=== PATIENT | female | born 2000 | race Two or more races ===

== ENCOUNTER → 2022-10-13 | Outpatient (REF) | payer OTHER | LOC: M PLALAB 10:04 | PROVIDERS: ATTEND Advanced Practice Midwife | DX: Z53.9 Procedure and treatment not carried out, unspecified reason (principal) ==

== ENCOUNTER → 2022-11-19 | Outpatient (CLI) | payer OTHER ==
[2022-11-19 13:22] LABS: HEMATOCRIT 39.2 % (36.0-47.0); HEMOGLOBIN 11.6 g/dl (12.0-15.5); MEAN CORPUSCULAR HEMOGLOBIN 22.5 pg (27.0-33.0); MEAN CORPUSCULAR HGB CONC 29.6 g/dl (32.0-36.5); PLATELET COUNT, AUTOMATED 441 10^3/uL (150-450); RED BLOOD COUNT 5.16 10^6/uL (4.00-5.40); WHITE BLOOD COUNT 14.4 10^3/uL (4.0-10.0)
[2022-11-19 14:22] LABS: HIV 1&2 SCREEN ATELLICA NEGATIVE (NEGATIVE)
[2022-11-19 14:30] LABS: HEPATITIS C VIRUS ABY INDEX 0.1 INDEX (<0.8)
[2022-11-19 15:19] LABS: GC DNA AMPLIFICATION NEGATIVE (NEGATIVE)
== END ==
LOC: M PLALAB 10:22
PROVIDERS: ATTEND Advanced Practice Midwife
DX: Z34.01 Encounter for supervision of normal first pregnancy, first trimester (principal)
CPT/HCPCS: 36415; 85027; 86762; 86780; 86803; 86850; 86900; 86901; 87086; 87340; 87389; 87810; 87850; G0463

== ENCOUNTER → 2022-12-21 | Outpatient (CLI) | payer OTHER | LOC: M WHC 13:08 | PROVIDERS: ATTEND Obstetrics & Gynecology | DX: Z34.92 Encounter for supervision of normal pregnancy, unspecified, second trimester (principal); Z3A.21 21 weeks gestation of pregnancy | CPT/HCPCS: 36415; 76811; G0463 ==

== ENCOUNTER → 2023-02-03 | Outpatient (CLI) | payer OTHER ==
[2023-02-03 17:31] LABS: HEMATOCRIT 35.1 % (36.0-47.0); HEMOGLOBIN 10.2 g/dl (12.0-15.5); MEAN CORPUSCULAR HEMOGLOBIN 21.7 pg (27.0-33.0); MEAN CORPUSCULAR HGB CONC 29.1 g/dl (32.0-36.5); MEAN CORPUSCULAR VOLUME 74.8 fl (80.0-96.0); PLATELET COUNT, AUTOMATED 443 10^3/uL (150-450); RED BLOOD COUNT 4.69 10^6/uL (4.00-5.40); WHITE BLOOD COUNT 16.9 10^3/uL (4.0-10.0)
== END ==
LOC: M PLALAB 14:01
PROVIDERS: ATTEND Advanced Practice Midwife
DX: Z34.02 Encounter for supervision of normal first pregnancy, second trimester (principal)

== ENCOUNTER → 2023-03-05 | Outpatient (CLI) | payer OTHER | LOC: M WHC 13:13 | PROVIDERS: ATTEND Advanced Practice Midwife | DX: Z34.02 Encounter for supervision of normal first pregnancy, second trimester (principal); Z3A.33 33 weeks gestation of pregnancy ==

== ENCOUNTER → 2023-04-02 | Outpatient (REF) | payer OTHER | LOC: M PLALAB 14:07 | PROVIDERS: ATTEND Obstetrics & Gynecology | DX: Z34.90 Encounter for supervision of normal pregnancy, unspecified, unspecified trimester (principal) ==

== ENCOUNTER → 2023-04-02 | Outpatient (CLI) | payer OTHER ==
[2023-04-02 17:36] LABS: HEMATOCRIT 34.7 % (36.0-47.0); HEMOGLOBIN 9.9 g/dl (12.0-15.5); MEAN CORPUSCULAR HEMOGLOBIN 19.8 pg (27.0-33.0); MEAN CORPUSCULAR HGB CONC 28.5 g/dl (32.0-36.5); MEAN CORPUSCULAR VOLUME 69.4 fl (80.0-96.0); PLATELET COUNT, AUTOMATED 410 10^3/uL (150-450); WHITE BLOOD COUNT 16.2 10^3/uL (4.0-10.0)
[2023-04-02 17:54] LABS: TOTAL PROTEIN,RANDOM URINE 39.7 MG/DL (0.0-14.0)
[2023-04-02 17:58] LABS: CREATININE,RANDOM URINE 184.2 MG/DL; LDH LACTATE DEHYDROGENASE 194 U/L (120-246)
[2023-04-02 17:59] LABS: ALT/SGPT < 9 U/L (7.0-40); AST/SGOT 11 U/L (<34); BILIRUBIN,TOTAL 0.5 MG/DL (0.3-1.2); GLOMERULAR FILTRATION RATE > 60.0 (>60)
[2023-04-02 19:19] LABS: URIC ACID 4.2 MG/DL (3.1-7.8)
== END ==
LOC: M PLALAB 15:09
PROVIDERS: ATTEND Obstetrics & Gynecology
DX: O16.9 Unspecified maternal hypertension, unspecified trimester (principal); Z3A.36 36 weeks gestation of pregnancy

== ENCOUNTER → 2023-04-22 | Outpatient (CLI) | payer OTHER | LOC: M WHC 11:28 | PROVIDERS: ATTEND Advanced Practice Midwife | DX: O26.849 Uterine size-date discrepancy, unspecified trimester (principal) ==

== ENCOUNTER → 2023-11-24 | Outpatient (REF) | payer OTHER ==
[~2023-11-24] MED LIST: ACET-683 PO; FERR324T21 PO; IBUP-1022 PO; NIFE1TAB52 PO; PRENTAB9 PO
== END ==
LOC: M PLALAB 16:09
PROVIDERS: ATTEND Obstetrics & Gynecology
DX: Z01.419 Encounter for gynecological examination (general) (routine) without abnormal findings (principal)

== ENCOUNTER → 2023-11-29 | Outpatient (CLI) | payer OTHER ==
[2023-11-29 15:41] LABS: ALBUMIN 4.2 G/DL (3.2-5.2); ALKALINE PHOSPHATASE 65 U/L (46-116); ALT/SGPT 25 U/L (7.0-40); AST/SGOT 14 U/L (<34); BILIRUBIN,TOTAL 0.5 MG/DL (0.3-1.2); BLOOD UREA NITROGEN 12 MG/DL (9-23); CALCIUM LEVEL 9.8 MG/DL (8.5-10.1); CARBON DIOXIDE LEVEL 27 MMOL/L (20-31); CHLORIDE LEVEL 108 MMOL/L (98-107); CHOLESTEROL LEVEL 193 MG/DL (<200); CHOLESTEROL RISK RATIO 5.43 (<5); CREATININE FOR GFR 0.84 MG/DL (0.55-1.30); FREE T4 1.17 NG/DL (0.89-1.76); GLOMERULAR FILTRATION RATE > 60.0 (>60); GLUCOSE, FASTING 86 MG/DL (60-100); HDL CHOLESTEROL 35.5 MG/DL (>40); LDL CHOLESTEROL 133.1 MG/DL (<100); NON-HDL-C 157.5 MG/DL; POTASSIUM SERUM 4.1 MMOL/L (3.5-5.1); SODIUM LEVEL 140 MMOL/L (136-145); TOTAL PROTEIN 7.1 G/DL (5.7-8.2); TRIGLYCERIDES LEVEL 122 MG/DL (<150)
[2023-11-29 16:29] LABS: HEMOGLOBIN A1c 5.3 % (4.0-6.0)
== END ==
LOC: M PLALAB 12:24
PROVIDERS: ATTEND Obstetrics & Gynecology
DX: E28.2 Polycystic ovarian syndrome (principal)

== ENCOUNTER → 2024-03-27 | Outpatient (REF) | payer OTHER | LOC: M PLALAB 09:58 | PROVIDERS: ATTEND Advanced Practice Midwife | DX: Z34.81 Encounter for supervision of other normal pregnancy, first trimester (principal) ==

== ENCOUNTER → 2024-04-05 | Outpatient (CLI) | payer OTHER ==
[2024-04-05 14:25] LABS: HEMATOCRIT 43.4 % (36.0-47.0); HEMOGLOBIN 13.6 g/dl (12.0-15.5); MEAN CORPUSCULAR HEMOGLOBIN 25.3 pg (27.0-33.0); MEAN CORPUSCULAR HGB CONC 31.3 g/dl (32.0-36.5); MEAN CORPUSCULAR VOLUME 80.7 fl (80.0-96.0); PLATELET COUNT, AUTOMATED 405 10^3/uL (150-450); RED BLOOD COUNT 5.38 10^6/uL (4.00-5.40); WHITE BLOOD COUNT 11.2 10^3/uL (4.0-10.0)
[2024-04-05 14:39] LABS: TOTAL PROTEIN,RANDOM URINE 34.7 MG/DL (0.0-14.0)
[2024-04-05 14:42] LABS: CREATININE,RANDOM URINE 91.4 MG/DL; URIC ACID 3.5 MG/DL (3.1-7.8)
[2024-04-05 14:44] LABS: LDH LACTATE DEHYDROGENASE 150 U/L (120-246)
[2024-04-05 14:45] LABS: ALT/SGPT 10 U/L (7.0-40); AST/SGOT < 8 U/L (<34); BILIRUBIN,TOTAL < 0.2 MG/DL (0.3-1.2); CREATININE FOR GFR 0.54 MG/DL (0.55-1.30); GLOMERULAR FILTRATION RATE > 60.0 (>60)
[2024-04-05 15:09] LABS: HIV 1&2 SCREEN NEGATIVE (NEGATIVE)
[2024-04-05 16:10] LABS: GC DNA AMPLIFICATION NEGATIVE (NEGATIVE)
== END ==
LOC: M PLALAB 11:44
PROVIDERS: ATTEND Advanced Practice Midwife
DX: Z34.81 Encounter for supervision of other normal pregnancy, first trimester (principal)

== ENCOUNTER 2024-05-27 20:13 | Emergency (ER) | payer OTHER ==
[~2024-05-27] VITALS: Ht 165.1 cm; Wt 113.6 kg
[2024-05-27 20:18] VITALS: BP 188/90; TEMP 98.1; O2SAT 98
[2024-05-27] MEDS ORDERED: LABE20TAB (20:26)
== END 2024-05-27 20:30 | disposition left against medical advice (07) ==
LOC: M ED 20:13
DX: Z53.21 Procedure and treatment not carried out due to patient leaving prior to being seen by health care provider (principal)

== ENCOUNTER 2024-05-27 20:35 | Outpatient (CLI) | payer OTHER ==
[~2024-05-27] VITALS: Ht 165.1 cm; Wt 113.8 kg
[~2024-05-27 20:35] MED LIST changes: +LABE20TAB
[2024-05-27] MEDS ORDERED: HOME MED LIST COMPLETE! XX SCH (20:50)
[2024-05-27 20:58] VITALS: BP 140/76
[2024-05-27 21:17] VITALS: BP 123/69
[2024-05-27 21:31] VITALS: BP 122/65
[2024-05-27 21:50] LABS: TOTAL PROTEIN,RANDOM URINE 33.4 MG/DL (0.0-14.0)
[2024-05-27 21:55] LABS: CREATININE,RANDOM URINE 231.3 MG/DL
[2024-05-27 22:05] LABS: HEMATOCRIT 37.6 % (36.0-47.0); HEMOGLOBIN 11.9 g/dl (12.0-15.5); MEAN CORPUSCULAR HEMOGLOBIN 25.1 pg (27.0-33.0); MEAN CORPUSCULAR HGB CONC 31.6 g/dl (32.0-36.5); MEAN CORPUSCULAR VOLUME 79.3 fl (80.0-96.0); PLATELET COUNT, AUTOMATED 383 10^3/uL (150-450); RED BLOOD COUNT 4.74 10^6/uL (4.00-5.40)
[2024-05-27 22:32] LABS: URIC ACID 4.2 MG/DL (3.1-7.8)
[2024-05-27 22:35] LABS: LDH LACTATE DEHYDROGENASE 152 U/L (120-246)
[2024-05-27 22:36] LABS: ALBUMIN 2.9 G/DL (3.2-5.2); ALKALINE PHOSPHATASE 70 U/L (46-116); ALT/SGPT 9 U/L (7.0-40); AST/SGOT < 8 U/L (<34); BILIRUBIN,TOTAL 0.3 MG/DL (0.3-1.2); BLOOD UREA NITROGEN 8 MG/DL (9-23); CALCIUM LEVEL 9.7 MG/DL (8.5-10.1); CARBON DIOXIDE LEVEL 25 MMOL/L (20-31); CHLORIDE LEVEL 108 MMOL/L (98-107); CREATININE FOR GFR 0.57 MG/DL (0.55-1.30); GLOMERULAR FILTRATION RATE > 60.0 (>60); GLUCOSE, FASTING 87 MG/DL (60-100); POTASSIUM SERUM 3.7 MMOL/L (3.5-5.1); SODIUM LEVEL 140 MMOL/L (136-145); TOTAL PROTEIN 6.5 G/DL (5.7-8.2)
== END 2024-05-27 23:37 | disposition home or self-care (01) ==
LOC: M LDO 20:35
PROVIDERS: ATTEND Obstetrics & Gynecology
DX: O10.012 Pre-existing essential hypertension complicating pregnancy, second trimester (principal); O26.892 Other specified pregnancy related conditions, second trimester; Z91.09 Other allergy status, other than to drugs and biological substances; M35.9 Systemic involvement of connective tissue, unspecified; Z3A.19 19 weeks gestation of pregnancy
CPT/HCPCS: 36415; 59025; 80053; 82570; 83615; 84156; 84550; 85027; G0463

== ENCOUNTER → 2024-06-02 | Outpatient (CLI) | payer OTHER | LOC: M PLALAB 13:53 | PROVIDERS: ATTEND Nurse Practitioner Women's Health | DX: Z34.80 Encounter for supervision of other normal pregnancy, unspecified trimester (principal) ==

== ENCOUNTER → 2024-06-02 | Outpatient (CLI) | payer OTHER | LOC: M WHC 12:46 | PROVIDERS: ATTEND Obstetrics & Gynecology | DX: Z36.89 Encounter for other specified antenatal screening (principal); Z3A.19 19 weeks gestation of pregnancy ==

== ENCOUNTER → 2024-07-14 | Outpatient (CLI) | payer OTHER ==
[2024-07-13 20:31] LABS: GC DNA AMPLIFICATION NEGATIVE (NEGATIVE)
[2024-07-14 13:52] LABS: HEMATOCRIT 37.8 % (36.0-47.0); HEMOGLOBIN 11.2 g/dl (12.0-15.5); MEAN CORPUSCULAR HEMOGLOBIN 23.4 pg (27.0-33.0); MEAN CORPUSCULAR HGB CONC 29.6 g/dl (32.0-36.5); MEAN CORPUSCULAR VOLUME 79.1 fl (80.0-96.0); PLATELET COUNT, AUTOMATED 377 10^3/uL (150-450); RED BLOOD COUNT 4.78 10^6/uL (4.00-5.40); WHITE BLOOD COUNT 13.2 10^3/uL (4.0-10.0)
[2024-07-14 13:54] LABS: GLUCOSE CHALLENGE TEST 1 HOUR 119 MG/DL (LESS THAN 140)
[2024-07-14 14:29] LABS: HIV 1&2 SCREEN NEGATIVE (NEGATIVE)
[2024-07-14 14:36] LABS: HEPATITIS C VIRUS ABY INDEX 0.15 INDEX (<0.8)
[2024-07-14 15:20] LABS: GC DNA AMPLIFICATION NEGATIVE (NEGATIVE)
== END ==
LOC: M PLALAB 07-13 14:19
PROVIDERS: ATTEND Obstetrics & Gynecology
DX: O11.2 Pre-existing hypertension with pre-eclampsia, second trimester (principal)

== ENCOUNTER 2024-08-28 16:04 | Outpatient (CLI) | payer OTHER ==
[~2024-08-28] VITALS: Ht 165.1 cm; Wt 118.3 kg
[2024-08-28 16:21] VITALS: BP 133/71; O2SAT 97
[2024-08-28] MEDS ORDERED: LABE300T3 PO (16:22)
[2024-08-28 16:38] VITALS: BP 122/76
[2024-08-28 17:22] VITALS: BP 132/68
[2024-08-28 17:37] VITALS: BP 135/66
== END 2024-08-28 18:00 | disposition home or self-care (01) ==
LOC: M LDO 16:04
PROVIDERS: ATTEND Advanced Practice Midwife
DX: O10.013 Pre-existing essential hypertension complicating pregnancy, third trimester (principal); O26.893 Other specified pregnancy related conditions, third trimester; R42 Dizziness and giddiness; Z3A.32 32 weeks gestation of pregnancy
CPT/HCPCS: 59025; 76816; 76820; G0463

== ENCOUNTER 2024-09-04 13:35 | Outpatient (CLI) | payer OTHER ==
[~2024-09-04] VITALS: Ht 165.1 cm; Wt 118.7 kg
[~2024-09-04 13:35] MED LIST changes: +LABE300T3 PO
[2024-09-04] MEDS: BETAMETHASONE SOLUSPAN 6MG/ML 5ML VIAL IM SCH (14:03)
== END 2024-09-04 14:00 | disposition home or self-care (01) ==
LOC: M LDO 13:35
PROVIDERS: ATTEND Advanced Practice Midwife
DX: O10.013 Pre-existing essential hypertension complicating pregnancy, third trimester (principal); Z3A.33 33 weeks gestation of pregnancy
CPT/HCPCS: 96372; G0463; J0702

== ENCOUNTER 2024-09-05 13:50 | Outpatient (CLI) | payer OTHER ==
[~2024-09-05] VITALS: Ht 165.1 cm; Wt 119.7 kg
[2024-09-05 14:10] VITALS: BP 136/75
[2024-09-05] MEDS: BETAMETHASONE SOLUSPAN 6MG/ML 5ML VIAL IM ONE (14:51)
== END 2024-09-05 15:00 | disposition home or self-care (01) ==
LOC: M LDO 13:50
PROVIDERS: ATTEND Obstetrics & Gynecology
DX: O10.013 Pre-existing essential hypertension complicating pregnancy, third trimester (principal); Z3A.34 34 weeks gestation of pregnancy
CPT/HCPCS: 59025; 96372; G0463; J0702

== ENCOUNTER → 2024-09-18 | Outpatient (REF) | payer OTHER | LOC: M PLALAB 10:45 | PROVIDERS: ATTEND Obstetrics & Gynecology | DX: O10.013 Pre-existing essential hypertension complicating pregnancy, third trimester (principal); Z3A.36 36 weeks gestation of pregnancy; Z91.02 Food additives allergy status ==

== ENCOUNTER 2024-09-26 08:00 | Inpatient (IN) | payer OTHER ==
[~2024-09-26] VITALS: Ht 165.1 cm; Wt 121.4 kg
[2024-09-26] VITALS (23 sets, daily range): BP systolic 116–154; BP diastolic 61–97
[2024-09-26] MEDS ORDERED: OXYTOCIN INJ 10UNITS/ML 1ML VIAL IM PRN (08:50)
[2024-09-26] MEDS ORDERED: LIDOCAINE 1% MDV 20ML VIAL INFIL PRN (08:50)
[2024-09-26] MEDS ORDERED: OXYTOCIN DRIP 30 UNITS in IV 1 EA IV PRN (08:50)
[2024-09-26] MEDS ORDERED: CARBOPROST TROMETHAMINE 250 MCG/ML AMP IM PRN (08:50)
[2024-09-26] MEDS ORDERED: HOME MED LIST COMPLETE! XX SCH (08:55)
[2024-09-26] MEDS: miSOPROStol 50MCG 1/2 TABLET PO SCH (09:13)
[2024-09-26 10:02] LABS: HEMATOCRIT 36.5 % (36.0-47.0); HEMOGLOBIN 10.9 g/dl (12.0-15.5); MEAN CORPUSCULAR HEMOGLOBIN 22.3 pg (27.0-33.0); MEAN CORPUSCULAR HGB CONC 29.9 g/dl (32.0-36.5); MEAN CORPUSCULAR VOLUME 74.6 fl (80.0-96.0); PLATELET COUNT, AUTOMATED 373 10^3/uL (150-450); RED BLOOD COUNT 4.89 10^6/uL (4.00-5.40); WHITE BLOOD COUNT 11.6 10^3/uL (4.0-10.0)
[2024-09-26 10:28] LABS: URIC ACID 4.2 MG/DL (3.1-7.8)
[2024-09-26 10:30] LABS: LDH LACTATE DEHYDROGENASE 127 U/L (120-246)
[2024-09-26 10:31] LABS: ALT/SGPT 10 U/L (7.0-40); AST/SGOT < 8 U/L (<34); BILIRUBIN,TOTAL 0.4 MG/DL (0.3-1.2); CREATININE FOR GFR 0.56 MG/DL (0.55-1.30); GLOMERULAR FILTRATION RATE > 60.0 (>60)
[2024-09-26 10:58] LABS: HIV 1&2 SCREEN NEGATIVE (NEGATIVE)
[2024-09-26 11:06] LABS: HEPATITIS C VIRUS ABY INDEX 0.06 INDEX (<0.8)
[2024-09-26 12:26] LABS: CREATININE,RANDOM URINE 236.1 MG/DL
[2024-09-26 12:59] LABS: TOTAL PROTEIN,RANDOM URINE 31.2 MG/DL (0.0-14.0)
[2024-09-26] MEDS: LABETALOL 200 MG TAB PO SCH (13:39)
[2024-09-26] MEDS: LR 1,000 ML IV SCH (16:18)
[2024-09-26] MEDS: OXYTOCIN DRIP 30 UNITS in IV 1 EA IV SCH (16:19)
[2024-09-26] MEDS ORDERED: diphenhydrAMINE 50MG/ML VIAL IV PRN (19:50)
[2024-09-26] MEDS ORDERED: NALOXONE INJ 0.4MG/1ML VIAL IV PRN (19:50)
[2024-09-26] MEDS ORDERED: LR 500 ML IV PRN (19:50)
[2024-09-26] MEDS ORDERED: ePHEDrine SULFATE 25 MG/5 ML(5MG/ML) SYRINGE IVP PRN (19:50)
[2024-09-26] MEDS ORDERED: ONDANSETRON 4MG 2ML VIAL IV PRN (19:50)
[2024-09-26] MEDS ORDERED: EPIDURAL/PCA KEYS XX PRN (19:50)
[2024-09-26] MEDS: FENTANYL/ROPIVACAINE/NACL BAG 100 ML EPIDURAL SCH (20:30)
[2024-09-26] MEDS: TRANEXAMIC ACID INJection 1,000 MG in NS 100 ML IV PRN (22:23)
[2024-09-26] MEDS ORDERED: IBUPROFEN 600MG TAB PO PRN (22:30)
[2024-09-26] MEDS ORDERED: ACETAMINOPHEN 325 MG TAB PO PRN (22:30)
[2024-09-26] MEDS ORDERED: DIBUCAINE 1% OINTMENT 30GM TOP PRN (22:30)
[2024-09-26] MEDS ORDERED: RHOGAM 300MCG (1500IU) INJ IM SCH (22:30)
[2024-09-27 01:00] VITALS: BP 126/62; O2SAT 97
[2024-09-27 06:08] VITALS: BP 123/58; O2SAT 96
[2024-09-27] MEDS: PRENATAL VITAMINS CHEWABLE TABLET PO SCH (08:08)
[2024-09-27] MEDS: DOCUSATE SODIUM 100MG CAPSULE PO PRN (08:08)
[2024-09-27] MEDS: ACETAMINOPHEN 500 MG TAB PO PRN (08:09)
[2024-09-27] MEDS: LABETALOL 100MG TAB PO SCH (08:09)
[2024-09-27 10:00] VITALS: BP 133/60; O2SAT 96
[2024-09-27 14:00] VITALS: BP 127/70; O2SAT 96
[2024-09-27] MEDS: IBUPROFEN 800 MG TAB PO PRN (15:44)
[2024-09-27 18:00] VITALS: BP 132/61; O2SAT 97
[2024-09-27 22:00] VITALS: BP 135/78; O2SAT 98
[2024-09-28 02:00] VITALS: BP 136/61; O2SAT 96
[2024-09-28 06:18] VITALS: BP 140/65; O2SAT 95
[2024-09-28 08:48] VITALS: BP 129/67
[2024-09-28] MEDS ORDERED: MEASLES,MUMPS,RUBELLA VACCINE INJ (MMR-II) SC.IMMUN ONE (09:00)
[2024-09-28] MEDS: BOOSTRIX VACCINE (TETANUS/DIPHTH/ACEL. PERTUSSIS) 0.5ML SYR IM.IMMUN ONE (14:32)
== END 2024-09-28 18:00 | disposition home or self-care (01) | DRG 807 ==
LOC: M LDI 08:00 → M OBS 09-27 00:46
PROVIDERS: ADMIT Advanced Practice Midwife; ATTEND Advanced Practice Midwife
PROC: 10E0XZZ Delivery of Products of Conception, External Approach (ICD-10-PCS; principal; 2024-09-26)
PROC: 3E0P7GC Introduction of Other Therapeutic Substance into Female Reproductive, Via Natural or Artificial Opening (ICD-10-PCS; 2024-09-26)
PROC: 0HQ9XZZ Repair Perineum Skin, External Approach (ICD-10-PCS; 2024-09-26)
DX: O10.02 Pre-existing essential hypertension complicating childbirth (principal); Z37.0 Single live birth; Z3A.37 37 weeks gestation of pregnancy; Z79.899 Other long term (current) drug therapy; Z91.048 Other nonmedicinal substance allergy status; O70.0 First degree perineal laceration during delivery

== ENCOUNTER → 2025-01-04 | Outpatient (CLI) | payer OTHER ==
[2025-01-04 17:50] LABS: PROLACTIN 13.13 NG/ML
[2025-01-04 17:51] LABS: THYROID STIMULATING HORMONE < 0.010 uIU/ML (0.55-4.78)
[2025-01-04 17:55] LABS: PROGESTERONE 0.86 NG/ML
== END ==
LOC: M PLALAB 14:51
PROVIDERS: ATTEND Advanced Practice Midwife
DX: O92.70 Unspecified disorders of lactation (principal)

== ENCOUNTER → 2025-07-24 | Outpatient (CLI) | payer SELFPAY ==
[~2025-07-24] MED LIST changes: -IBUP-1022 PO; +IBUP600T42 PO; -LABE300T3 PO; +[UNRECOGNIZED DRUG - CODE] PO
[2025-07-24 15:58] LABS: FREE T4 1.45 NG/DL (0.89-1.76)
== END ==
LOC: M PLALAB 12:27
PROVIDERS: ATTEND Nurse Practitioner Family
DX: E05.00 Thyrotoxicosis with diffuse goiter without thyrotoxic crisis or storm (principal)